=== PATIENT | female | born 1965 | race Two or more races ===

== ENCOUNTER 2020-05-06 15:11 | Emergency (ER) | payer BC, OTHER ==
[~2020-05-06] VITALS: Ht 162.6 cm; Wt 76.2 kg
--- NOTE | 2020-05-06 15:31 | NUR ---
Dr Iniguez at the bedside for MSE.
[2020-05-06 16:15] VITALS: BP 132/82
== END 2020-05-06 16:15 | disposition home or self-care (01) ==
LOC: ER 15:14
DX: S81.832A Puncture wound without foreign body, left lower leg, initial encounter (principal); W55.01XA Bitten by cat, initial encounter; Y92.89 Other specified places as the place of occurrence of the external cause; S92.512A Displaced fracture of proximal phalanx of left lesser toe(s), initial encounter for closed fracture; W18.49XA Other slipping, tripping and stumbling without falling, initial encounter
CPT/HCPCS: 73660; A4663